=== PATIENT | female | born 1960 | race Caucasian/White ===

== ENCOUNTER 2020-04-20 10:35 | Observation (INO) | payer BC ==
[2020-04-20] MEDS ORDERED: BABY ASPIRIN 81 MG CHEW ONE (10:57)
[2020-04-20] MEDS ORDERED: BABY ASPIRIN 81 MG CHEW PO ONE (11:11)
[2020-04-20 11:19] LABS: Absolute Neutrophil Ct (ANC) 5.29 (1.4-6.9); BASOPHIL % 0.3 % (0.0-0.4); Basophil (Absolute #) 0.03 (0-0.4); Eosinophil % 2.2 % (0.00-5.0); Eosinophil (Absolute #) 0.19 (0-0.5); Hematocrit 45.8 % (35-47); Hemoglobin 15.2 gm/dl (12.0-16.0); Lymphocyte (Absolute #) 2.38 (1.0-4.6); Lymphocytes % 27.1 % (24.0-44.0); Mean Cell Volume 88.8 fl (78-100); Mean Corpuscular Hemoglobin 29.5 pg (26-32); Mean Corpuscular Hgb Concent. 33.2 g/dl (32-36); Mean Platelet Volume 11.3 fl (7.5-11.0); Monocyte (Absolute #) 0.89 (0.0-1.3); Monocytes % 10.1 % (0.0-12.0); Neutrophil % 60.3 % (36.0-66.0); Platelet Count 289 K/mm3 (150-450); Red Blood Count 5.16 M/mm3 (4.1-5.4); Red Cell Distribution Width 13.3 % (11.5-14.0); White Blood Count 8.8 K/mm3 (4.0-10.5)
[2020-04-20 11:35] LABS: ALBUMIN 4.5 g/dL (3.5-5.0); ALKALINE PHOSPHATASE 126 U/L (38-126); ANION GAP 11.6 MEQ/L (5-15); BLOOD UREA NITROGEN 18 mg/dL (7-17); CHLORIDE 100 mmol/L (98-107); Calcium 9.6 mg/dL (8.4-10.2); Carbon Dioxide 30 mmol/L (22-30); Creatinine 1 0.63 mg/dL (0.52-1.04); EST GLOMERULAR FILTRATION RATE > 60.0 ML/MIN; Glucose 144 mg/dL (74-106); NT PRO BNP 39.7 pg/mL (0-900); SGOT/AST 33 U/L (14-36); SGPT/ALT 27 U/L (0-35); SODIUM 138 mmol/L (137-145); Total Protein 9.1 g/dL (6.3-8.2)
--- NOTE | 2020-04-20 11:35 | ERPHSYRPT ---
- History of Present Illness Time Seen by Provider: 04/20/20 10:50 Historian: patient Exam Limitations: no limitations Patient Subjective Stated Complaint: CP Triage Nursing Assessment: pt to ED c/o CP 2/10 x 2-3 days. CP woke pt this AM. reports constant pressure and occasional heaviness 5/10 to L chest and some time in L back shoulder blade. denies cardiac hx other than HTN which she takes meds for. hypertensive on arrival, pt states d/t anxiety of being in ED. ambulates without assistance. heart sounds clear. Physician History: 59 years old female with history of hypertension, diabetes mellitus presented in the ER with chief complaint of left-sided chest pain off and on for the last 2 to 3 days, lasting for few minutes and improved without any intervention, occasional radiation to the back especially in the shoulder blade area on the left without any associated palpitations or increased shortness of breath but what she has at her baseline. It woke her up from sleep this morning and improved with sitting and later came back when she went to work, continuous, rating 2/10 tightness and pressure. Does not have any history of CAD/any cardiac work-up done in the past. Timing/Duration: day(s) (3), intermittent, gradual onset, improved Activities at Onset: rest Quality: dullness, pressure, tightness Location: substernal Chest Pain Radiation: back Severity of Pain-Max: moderate Severity of Pain-Current: mild Modifying Factors: Worsens With: exertion Associated Symptoms: nausea Prior Chest Pain/Cardiac Workup: no prior chest pain, no prior cardiac workup Nitro Today/Relief: no nitro taken today Aspirin Treatment Today: no aspirin today Allergies/Adverse Reactions: cephalexin [From Keflex] Adverse Reaction (Verified 04/20/20 11:00) NV, HARRELL morphine Adverse Reaction (Verified 04/20/20 11:00) NV Home Medications: Glipizide [Glipizide ER] 1 tab PO DAILY 04/20/20 [History] Valsartan/Hydrochlorothiazide [Valsartan-Hctz 320-12.5 mg Tab] 1 tab PO DAILY 04/20/20 [History] Hx Tetanus, Diphtheria Vaccination/Date Given: Yes Hx Influenza Vaccination/Date Given: Yes Hx Pneumococcal Vaccination/Date Given: Yes Immunizations Up to Date: Yes Travel Risk - International Travel Have you traveled outside of the country in past 3 weeks: No - Coronavirus Screening Are you exhibiting any of the following symptoms?: No Close contact with a COVID-19 positive Pt in past 14-21 Days: No - Review of Systems Constitutional: No Symptoms Eyes: No Symptoms Ears, Nose, & Throat: No Symptoms Respiratory: Dyspnea Cardiac: Chest Pain Abdominal/Gastrointestinal: Nausea Genitourinary Symptoms: No Symptoms Musculoskeletal: No Symptoms Skin: No Symptoms Neurological: No Symptoms Psychological: No Symptoms Endocrine: No Symptoms Hematologic/Lymphatic: No Symptoms Immunological/Allergic: No Symptoms - Past Medical History Pertinent Past Medical History: Yes Neurological History: No Pertinent History Cardiac History: Hypertension Endocrine Medical History: Diabetes Type II - Past Surgical History Past Surgical History: Yes Musculoskeletal: Orthopedic Surgery Other Surgical History: R wrist, R foot x 3. biopsy on R breast 2009, negative - Social History Smoking Status: Never smoker Exposure to second hand smoke: No Drug Use: none Patient Lives Alone: No - Female History Hx Now: No - Nursing Vital Signs Nursing Vital Signs: Initial Vital Signs Temperature 98.7 F 04/20/20 10:43 Pulse Rate 85 04/20/20 10:43 Respiratory Rate 21 04/20/20 10:43 Blood Pressure 208/111 04/20/20 10:43 O2 Sat by Pulse Oximetry 98 04/20/20 10:43 Pain Scale Pain Intensity 0 - Physical Exam General Appearance: no apparent distress Eye Exam: PERRL/EOMI, eyes nml inspection Ears, Nose, Throat Exam: normal ENT inspection, TMs normal, pharynx normal Neck Exam: normal inspection, non-tender, supple, full range of motion Respiratory Exam: normal breath sounds, lungs clear Cardiovascular Exam: regular rate/rhythm, normal heart sounds Gastrointestinal/Abdomen Exam: soft, normal bowel sounds Back Exam: normal inspection, normal range of motion Extremity Exam: normal inspection, normal range of motion Neurologic Exam: alert, oriented x 3, cooperative Skin Exam: normal color SpO2 Interpretation: normal SpO2: 99 O2 Delivery: Room Air - Course EKG Interpreted by Me: RATE (79), Sinus Rhythm, NORMAL AXIS, NORMAL INTERVALS, NORMAL QRS Ordered Tests: Active Orders 24 hr Category Date Time Status Bedrest with BRP/BSC ROUTINE Activity 04/20/20 13:16 Active Up With Assistance ROUTINE Activity 04/20/20 13:16 Active Block Captain STAT Care 04/20/20 11:11 Completed Code Status Order ROUTINE Care 04/20/20 13:16 Active EKG-ER Only STAT Care 04/20/20 11:11 Completed Fall Protocol ROUTINE Care 04/20/20 13:16 Active IV Care Q6H Care 04/20/20 13:16 Active IV Insertion STAT Care 04/20/20 11:11 Completed Pulse Oximetry (ED) STAT Care 04/20/20 11:11 Completed Wilbert Lawton, Apply ROUTINE Care 04/20/20 13:16 Active Telemetry q6h Care 04/20/20 13:16 Active Weight,Daily 0600 Care 04/20/20 13:16 Active Consistent Carbohydrate Diet 1800 Calorie Diet 04/20/20 Dinner Active CHEST 2 VIEWS (PA AND LAT) Stat Exams 04/20/20 11:11 Completed CBC W DIFF AM.LAB Lab 04/21/20 04:00 Ordered CBC W DIFF Stat Lab 04/20/20 10:45 Completed CMP AM.LAB Lab 04/21/20 04:00 Ordered CMP Stat Lab 04/20/20 10:45 Completed D-DIMER QUANTITATIVE Stat Lab 04/20/20 10:45 Completed NT PRO BNP Stat Lab 04/20/20 10:45 Completed TROPONIN Q3H Lab 04/20/20 11:15 Completed TROPONIN Q3H Lab 04/20/20 14:15 Ordered TROPONIN Q3H Lab 04/20/20 17:15 Ordered TROPONIN Q3H Lab 04/20/20 20:15 Ordered TROPONIN Q3H Lab 04/20/20 23:15 Ordered Transfer Order Routine Transfer 04/20/20 Completed Medication Summary Generic Name Dose Route Start Last Admin Trade Name Freq PRN Reason Stop Dose Admin Acetaminophen 650 mg 04/20/20 13:16 Tylenol 325 Mg PO 05/20/20 13:15 Q4H PRN PRN PAIN AND/OR FEVER Albuterol/Ipratropium 3 ml 04/20/20 13:16 Duoneb 0.5-3 Mg/3 Ml Neb IH 05/20/20 13:15 Q4HPRN PRN SHORTNESS OF BREATH/WHEEZING Famotidine 20 mg 04/20/20 22:00 Pepcid 20 Mg Vial IV 05/20/20 21:59 Q12HT RENE Insulin Human Lispro 0 unit 04/20/20 13:16 Humalog SQ 05/20/20 13:15 UD PRN HYPERGLYCEMIA Morphine Sulfate 2 mg 04/20/20 13:16 Morphine Sulfate 2 Mg Inj IV 04/25/20 13:15 Q4H PRN PRN PAIN Ondansetron HCl 4 mg 04/20/20 13:16 Zofran 4 Mg/2 Ml Vial IV 05/20/20 13:15 Q6H PRN PRN NAUSEA/VOMITING Discontinued Medications Generic Name Dose Route Start Last Admin Trade Name Freq PRN Reason Stop Dose Admin Aspirin Confirm 04/20/20 10:57 Baby Aspirin 81 Mg Chew Administered 04/20/20 10:58 Dose 324 mg .ROUTE .STK-MED ONE Aspirin 324 mg 04/20/20 11:11 04/20/20 11:18 Baby Aspirin 81 Mg Chew PO 04/20/20 11:12 324 mg STAT ONE Administration Nitroglycerin 1 gm 04/20/20 11:51 04/20/20 11:57 Nitro-Bid 2% Ud Packets TOP 04/20/20 11:52 1 gm STAT ONE Administration Nitroglycerin Confirm 04/20/20 11:56 Nitro-Bid 2% Ud Packets Administered 04/20/20 11:57 Dose 1 gm .ROUTE .STK-MED ONE Lab/Rad Data: Laboratory Result Diagrams 04/20/20 10:45 04/20/20 10:45 Laboratory Results 04/20/20 04/20/20 04/20/20 Range/Units 11:15 10:45 10:45 WBC (4.0-10.5) K/mm3 RBC (4.1-5.4) M/mm3 Hgb (12.0-16.0) gm/dl Hct (35-47) % MCV (78-100) fl MCH (26-32) pg MCHC (32-36) g/dl RDW (11.5-14.0) % Plt Count (150-450) K/mm3 MPV (7.5-11.0) fl Gran % (36.0-66.0) % Eos # (Auto) (0-0.5) Absolute Lymphs (auto) (1.0-4.6) Absolute Monos (auto) (0.0-1.3) Lymphocytes % (24.0-44.0) % Monocytes % (0.0-12.0) % Eosinophils % (0.00-5.0) % Basophils % (0.0-0.4) % Absolute Granulocytes (1.4-6.9) Basophils # (0-0.4) D-Dimer 464 (215-500) ng/mL Sodium 138 (137-145) mmol/L Potassium 4.0 (3.5-5.1) mmol/L Chloride 100 (98-107) mmol/L Carbon Dioxide 30 (22-30) mmol/L Anion Gap 11.6 (5-15) MEQ/L BUN 18 H (7-17) mg/dL Creatinine 0.63 (0.52-1.04) mg/dL Estimated GFR > 60.0 ML/MIN Glucose 144 H (74-106) mg/dL Calcium 9.6 (8.4-10.2) mg/dL Total Bilirubin 0.60 (0.2-1.3) mg/dL AST 33 (14-36) U/L ALT 27 (0-35) U/L Alkaline Phosphatase 126 (38-126) U/L Troponin I < 0.012 (0.000-0.034) ng/mL NT-Pro-B Natriuret Pep 39.7 (0-900) pg/mL Serum Total Protein 9.1 H (6.3-8.2) g/dL Albumin 4.5 (3.5-5.0) g/dL 04/20/20 Range/Units 10:45 WBC 8.8 (4.0-10.5) K/mm3 RBC 5.16 (4.1-5.4) M/mm3 Hgb 15.2 (12.0-16.0) gm/dl Hct 45.8 (35-47) % MCV 88.8 (78-100) fl MCH 29.5 (26-32) pg MCHC 33.2 (32-36) g/dl RDW 13.3 (11.5-14.0) % Plt Count 289 (150-450) K/mm3 MPV 11.3 H (7.5-11.0) fl Gran % 60.3 (36.0-66.0) % Eos # (Auto) 0.19 (0-0.5) Absolute Lymphs (auto) 2.38 (1.0-4.6) Absolute Monos (auto) 0.89 (0.0-1.3) Lymphocytes % 27.1 (24.0-44.0) % Monocytes % 10.1 (0.0-12.0) % Eosinophils % 2.2 (0.00-5.0) % Basophils % 0.3 (0.0-0.4) % Absolute Granulocytes 5.29 (1.4-6.9) Basophils # 0.03 (0-0.4) D-Dimer (215-500) ng/mL Sodium (137-145) mmol/L Potassium (3.5-5.1) mmol/L Chloride (98-107) mmol/L Carbon Dioxide (22-30) mmol/L Anion Gap (5-15) MEQ/L BUN (7-17) mg/dL Creatinine (0.52-1.04) mg/dL Estimated GFR ML/MIN Glucose (74-106) mg/dL Calcium (8.4-10.2) mg/dL Total Bilirubin (0.2-1.3) mg/dL AST (14-36) U/L ALT (0-35) U/L Alkaline Phosphatase (38-126) U/L Troponin I (0.000-0.034) ng/mL NT-Pro-B Natriuret Pep (0-900) pg/mL Serum Total Protein (6.3-8.2) g/dL Albumin (3.5-5.0) g/dL - Progress Progress: improved Air Movement: good Progress Note: 04/20/20 12:00 59 years old is evaluated for intermittent chest pain for the last 2 to 3 days. Patient was hypertensive on presentation, given aspirin, offered pain medication which she refused. She is also given Nitropaste, on reevaluation her pain is better along with improvement in her blood pressure. Patient denies any headache or visual symptoms. Initial EKG did not show any acute ST elevations or depressions. Negative initial troponin and D-dimers. Chest x-ray no acute findings. Unremarkable work-up otherwise. Patient has multiple risk factors for CAD and does not have any work-up done in the near past. Discussed with Dr. Garnett with that patient is being admitted for observation for chest pain rule out GA. Plan discussed with patient in detail who understand and agrees with it. Blood Culture(s) Obtained: No Antibiotics given: No Discussed with : Kelechi Will see patient in: hospital (observation) Counseled pt/family regarding: lab results, diagnosis, rad results - Departure Departure Disposition: Observation Clinical Impression: Chest pain, rule out acute myocardial infarction, Uncontrolled hypertension Condition: Stable Critical Care Time: No
[2020-04-20] MEDS ORDERED: NITRO-BID 2% UD PACKETS TOP ONE (11:51)
[2020-04-20] MEDS ORDERED: NITRO-BID 2% UD PACKETS ONE (11:56)
--- NOTE | 2020-04-20 11:57 | XRAY ---
Indication: Chest pain. Comparison: May 11, 2019. PA/lateral chest remains clear. Heart and mediastinal structures within normal limits. Bony thorax intact again with mild degenerative changes and mild dextroscoliosis. Impression: Continued nonacute chest with chronic bony findings.
[2020-04-20] MEDS ORDERED: HUMALOG SQ PRN (13:16)
[2020-04-20] MEDS ORDERED: MORPHINE SULFATE 2 MG INJ IV PRN (13:16)
[2020-04-20] MEDS ORDERED: Zofran 4 MG/2 ML VIAL IV PRN (13:16)
[2020-04-20] MEDS ORDERED: TYLENOL 325 MG PO PRN (13:16)
[2020-04-20] MEDS ORDERED: DUONEB 0.5-3 MG/3 ml Neb IH PRN (13:16)
[2020-04-20] MEDS ORDERED: TYLENOL EXTRA STRENGTH 500 MG PO PRN (14:02)
[2020-04-20] MEDS: DIOVAN PO SCH ×2 (14:37)
[2020-04-20] MEDS: HYDRODIURIL PO SCH ×2 (14:37)
[2020-04-20] MEDS ORDERED: Glucotrol Xl 10 MG PO SCH (17:00)
[2020-04-20] MEDS ORDERED: TORAdol 30 mg Injection IM PRN (17:44)
[2020-04-20] MEDS ORDERED: TORAdol 30 mg Injection ONE (17:47)
[2020-04-20] MEDS ORDERED: NON-FORMULARY ITEM PO PRN (18:30)
[2020-04-20] MEDS ORDERED: Pepcid 20 MG VIAL IV SCH (22:00)
[2020-04-21 05:25] LABS: Absolute Neutrophil Ct (ANC) 4.28 (1.4-6.9); BASOPHIL % 0.4 % (0.0-0.4); Basophil (Absolute #) 0.03 (0-0.4); Eosinophil % 3.2 % (0.00-5.0); Eosinophil (Absolute #) 0.25 (0-0.5); Hematocrit 44.6 % (35-47); Hemoglobin 14.8 gm/dl (12.0-16.0); Lymphocyte (Absolute #) 2.32 (1.0-4.6); Mean Cell Volume 89.2 fl (78-100); Mean Corpuscular Hemoglobin 29.6 pg (26-32); Mean Corpuscular Hgb Concent. 33.2 g/dl (32-36); Mean Platelet Volume 11.4 fl (7.5-11.0); Monocyte (Absolute #) 0.85 (0.0-1.3); Neutrophil % 55.4 % (36.0-66.0); Platelet Count 281 K/mm3 (150-450); Red Cell Distribution Width 13.3 % (11.5-14.0); White Blood Count 7.7 K/mm3 (4.0-10.5)
[2020-04-21 05:56] LABS: ALKALINE PHOSPHATASE 108 U/L (38-126); ANION GAP 11.6 MEQ/L (5-15); BLOOD UREA NITROGEN 16 mg/dL (7-17); CHLORIDE 102 mmol/L (98-107); Calcium 9.3 mg/dL (8.4-10.2); Carbon Dioxide 27 mmol/L (22-30); Creatinine 1 0.52 mg/dL (0.52-1.04); EST GLOMERULAR FILTRATION RATE > 60.0 ML/MIN; Glucose 131 mg/dL (74-106); SGOT/AST 35 U/L (14-36); SGPT/ALT 21 U/L (0-35); SODIUM 136 mmol/L (137-145); Total Protein 8.1 g/dL (6.3-8.2)
[2020-04-21 06:03] LABS: Potassium 4.8 mmol/L (3.5-5.1)
[2020-04-21 07:09] VITALS: BP 139/81; PULSE 60; O2SAT 96
[2020-04-21] MEDS ORDERED: PATIENT OWN MEDICATION PO PRN (07:15)
--- NOTE | 2020-04-21 09:02 | PCM.HP ---
History of Present Illness - Chief Complaint Chief Complaint: c/o chest pain for 2 days History of Present Illness: is a 59 year old female.59 years old female with history of hypertension, diabetes mellitus presented in the ER with chief complaint of left-sided chest pain off and on for the last 2 to 3 days, lasting for few minutes and improved without any intervention, occasional radiation to the back especially in the shoulder blade area on the left without any associated palpit ations or increased shortness of breath but what she has at her baseline. It woke her up from sleep this morning and improved with sitting and later came back when she went to work, continuous, rating 2/10 tightness and pressure. Does not have any history of CAD/any cardiac work-up done in the past. - Review of Systems Constitutional: No Fever, No Chills Eyes: No Symptoms Ears, Nose, & Throat: No Symptoms Respiratory: No Cough, No Short Of Breath Cardiac: Chest Pain, No Edema, No Syncope Abdominal/Gastrointestinal: No Abdominal Pain, No Nausea, No Vomiting, No Diarrhea Genitourinary Symptoms: No Dysuria Musculoskeletal: No Back Pain, No Neck Pain Skin: No Rash Neurological: No Dizziness, No Focal Weakness, No Sensory Changes Psychological: No Symptoms Endocrine: No Symptoms Hematologic/Lymphatic: No Symptoms Immunological/Allergic: No Symptoms Medications & Allergies Home Medications: Home Medication List Glipizide [Glipizide ER] 10 mg PO 1700 04/20/20 [History Confirmed 04/20/20] Valsartan/Hydrochlorothiazide [Valsartan-Hctz 320-12.5 mg Tab] 1 tab PO DAILY 04/20/20 [History Confirmed 04/20/20] Allergies/Adverse Reactions: Allergies Allergy/AdvReac Type Severity Reaction Status Date / Time glimepiride AdvReac Severe Anaphylactic Verified 04/20/20 13:29 Reaction nizatidine [From Axid] AdvReac Severe Verified 04/20/20 13:29 cephalexin [From Keflex] AdvReac Verified 04/20/20 11:00 morphine AdvReac Verified 04/20/20 13:29 - Past Medical History Past Medical History: Yes Neurological History: No Pertinent History ENT History: No Pertinent History Cardiac History: Hypertension Respiratory History: No Pertinent History Endocrine Medical History: Diabetes Type II Musculoskelatal History: No Pertinent History GI Medical History: No Pertinent History History: No Pertinent History Pyscho-Social History: No Pertinent History Reproductive Disorders: No Pertinent History - Female History Are you now?: No - Past Surgical History Past Surgical History: Yes Neuro Surgical History: No Pertinent History Cardiac History: No Pertinent History Respiratory Surgery: No Pertinent History GI Surgical History: No Pertinent History Genitourinary Surgical Hx: No Pertinent History Musculskeletal Surgical Hx: Orthopedic Surgery Female Surgical History: Other Other Surgical History: R wrist, R foot x 3. biopsy on R breast 2010, negative - Social History Smoking Status: Never smoker Exposure to second hand smoke: No Alcohol: None Drug Use: none - Physical Exam Vital Signs: Vital Signs - 24 hr Temp Pulse Pulse Resp BP Pulse Ox 04/21/20 07:09 98.1 F 60 20 139/81 96 04/21/20 05:00 97.6 F 56 L 16 149/81 97 04/21/20 00:30 98.0 F 62 18 160/76 94 L 04/20/20 19:42 98.1 F 70 13 141/68 94 L 04/20/20 16:00 97.9 F 97 H 18 181/54 96 04/20/20 13:19 99 04/20/20 13:16 98.1 F 80 16 177/80 96 04/20/20 12:06 82 18 146/93 99 04/20/20 11:37 67 14 189/88 98 04/20/20 11:18 99 04/20/20 10:43 98.7 F 98 H 85 21 208/111 98 General Appearance: no apparent distress, alert Neurologic Exam: alert, oriented x 3, cooperative, normal mood/affect, nml cere bellar function, nml station & gait, sensation nml, No motor deficits Eye Exam: PERRL/EOMI, eyes nml inspection Ears, Nose, Throat Exam: normal ENT inspection, TMs normal, pharynx normal, moist mucous membranes Neck Exam: normal inspection, non-tender, supple, full range of motion Respiratory Exam: normal breath sounds, lungs clear, No respiratory distress Cardiovascular Exam: regular rate/rhythm, normal heart sounds, normal peripheral pulses Gastrointestinal/Abdomen Exam: soft, normal bowel sounds, No tenderness, No mass Back Exam: normal inspection, normal range of motion, No CVA tenderness, No vertebral tenderness Extremity Exam: normal inspection, normal range of motion, pelvis stable Skin Exam: normal color, warm, dry, No rash Lymphatic Exam: No adenopathy Results - Labs Lab/Micro Results: Lab Results-Last 24 Hours 04/20/20 04/20/20 04/20/20 Range/Units 10:45 10:45 10:45 WBC 8.8 (4.0-10.5) K/mm3 RBC 5.16 (4.1-5.4) M/mm3 Hgb 15.2 (12.0-16.0) gm/dl Hct 45.8 (35-47) % MCV 88.8 (78-100) fl MCH 29.5 (26-32) pg MCHC 33.2 (32-36) g/dl RDW 13.3 (11.5-14.0) % Plt Count 289 (150-450) K/mm3 MPV 11.3 H (7.5-11.0) fl Gran % 60.3 (36.0-66.0) % Eos # (Auto) 0.19 (0-0.5) Absolute Lymphs (auto) 2.38 (1.0-4.6) Absolute Monos (auto) 0.89 (0.0-1.3) Lymphocytes % 27.1 (24.0-44.0) % Monocytes % 10.1 (0.0-12.0) % Eosinophils % 2.2 (0.00-5.0) % Basophils % 0.3 (0.0-0.4) % Absolute Granulocytes 5.29 (1.4-6.9) Basophils # 0.03 (0-0.4) D-Dimer 464 (215-500) ng/mL Sodium 138 (137-145) mmol/L Potassium 4.0 (3.5-5.1) mmol/L Chloride 100 (98-107) mmol/L Carbon Dioxide 30 (22-30) mmol/L Anion Gap 11.6 (5-15) MEQ/L BUN 18 H (7-17) mg/dL Creatinine 0.63 (0.52-1.04) mg/dL Estimated GFR > 60.0 ML/MIN Glucose 144 H (74-106) mg/dL POC Glucometer (74 to 106) mg/dL Calcium 9.6 (8.4-10.2) mg/dL Total Bilirubin 0.60 (0.2-1.3) mg/dL AST 33 (14-36) U/L ALT 27 (0-35) U/L Alkaline Phosphatase 126 (38-126) U/L Troponin I (0.000-0.034) ng/mL NT-Pro-B Natriuret Pep 39.7 (0-900) pg/mL Serum Total Protein 9.1 H (6.3-8.2) g/dL Albumin 4.5 (3.5-5.0) g/dL 04/20/20 04/20/20 04/20/20 Range/Units 11:15 14:20 16:19 WBC (4.0-10.5) K/mm3 RBC (4.1-5.4) M/mm3 Hgb (12.0-16.0) gm/dl Hct (35-47) % MCV (78-100) fl MCH (26-32) pg MCHC (32-36) g/dl RDW (11.5-14.0) % Plt Count (150-450) K/mm3 MPV (7.5-11.0) fl Gran % (36.0-66.0) % Eos # (Auto) (0-0.5) Absolute Lymphs (auto) (1.0-4.6) Absolute Monos (auto) (0.0-1.3) Lymphocytes % (24.0-44.0) % Monocytes % (0.0-12.0) % Eosinophils % (0.00-5.0) % Basophils % (0.0-0.4) % Absolute Granulocytes (1.4-6.9) Basophils # (0-0.4) D-Dimer (215-500) ng/mL Sodium (137-145) mmol/L Potassium (3.5-5.1) mmol/L Chloride (98-107) mmol/L Carbon Dioxide (22-30) mmol/L Anion Gap (5-15) MEQ/L BUN (7-17) mg/dL Creatinine (0.52-1.04) mg/dL Estimated GFR ML/MIN Glucose (74-106) mg/dL POC Glucometer 155 H (74 to 106) mg/dL Calcium (8.4-10.2) mg/dL Total Bilirubin (0.2-1.3) mg/dL AST (14-36) U/L ALT (0-35) U/L Alkaline Phosphatase (38-126) U/L Troponin I < 0.012 < 0.012 (0.000-0.034) ng/mL NT-Pro-B Natriuret Pep (0-900) pg/mL Serum Total Protein (6.3-8.2) g/dL Albumin (3.5-5.0) g/dL 04/20/20 04/20/20 04/20/20 Range/Units 17:45 20:20 20:28 WBC (4.0-10.5) K/mm3 RBC (4.1-5.4) M/mm3 Hgb (12.0-16.0) gm/dl Hct (35-47) % MCV (78-100) fl MCH (26-32) pg MCHC (32-36) g/dl RDW (11.5-14.0) % Plt Count (150-450) K/mm3 MPV (7.5-11.0) fl Gran % (36.0-66.0) % Eos # (Auto) (0-0.5) Absolute Lymphs (auto) (1.0-4.6) Absolute Monos (auto) (0.0-1.3) Lymphocytes % (24.0-44.0) % Monocytes % (0.0-12.0) % Eosinophils % (0.00-5.0) % Basophils % (0.0-0.4) % Absolute Granulocytes (1.4-6.9) Basophils # (0-0.4) D-Dimer (215-500) ng/mL Sodium (137-145) mmol/L Potassium (3.5-5.1) mmol/L Chloride (98-107) mmol/L Carbon Dioxide (22-30) mmol/L Anion Gap (5-15) MEQ/L BUN (7-17) mg/dL Creatinine (0.52-1.04) mg/dL Estimated GFR ML/MIN Glucose (74-106) mg/dL POC Glucometer 145 H (74 to 106) mg/dL Calcium (8.4-10.2) mg/dL Total Bilirubin (0.2-1.3) mg/dL AST (14-36) U/L ALT (0-35) U/L Alkaline Phosphatase (38-126) U/L Troponin I < 0.012 < 0.012 (0.000-0.034) ng/mL NT-Pro-B Natriuret Pep (0-900) pg/mL Serum Total Protein (6.3-8.2) g/dL Albumin (3.5-5.0) g/dL 04/20/20 04/21/20 04/21/20 Range/Units 23:30 04:45 04:45 WBC 7.7 (4.0-10.5) K/mm3 RBC 5.00 (4.1-5.4) M/mm3 Hgb 14.8 (12.0-16.0) gm/dl Hct 44.6 (35-47) % MCV 89.2 (78-100) fl MCH 29.6 (26-32) pg MCHC 33.2 (32-36) g/dl RDW 13.3 (11.5-14.0) % Plt Count 281 (150-450) K/mm3 MPV 11.4 H (7.5-11.0) fl Gran % 55.4 (36.0-66.0) % Eos # (Auto) 0.25 (0-0.5) Absolute Lymphs (auto) 2.32 (1.0-4.6) Absolute Monos (auto) 0.85 (0.0-1.3) Lymphocytes % 30.0 (24.0-44.0) % Monocytes % 11.0 (0.0-12.0) % Eosinophils % 3.2 (0.00-5.0) % Basophils % 0.4 (0.0-0.4) % Absolute Granulocytes 4.28 (1.4-6.9) Basophils # 0.03 (0-0.4) D-Dimer (215-500) ng/mL Sodium 136 L (137-145) mmol/L Potassium 4.8 (3.5-5.1) mmol/L Chloride 102 (98-107) mmol/L Carbon Dioxide 27 (22-30) mmol/L Anion Gap 11.6 (5-15) MEQ/L BUN 16 (7-17) mg/dL Creatinine 0.52 (0.52-1.04) mg/dL Estimated GFR > 60.0 ML/MIN Glucose 131 H (74-106) mg/dL POC Glucometer (74 to 106) mg/dL Calcium 9.3 (8.4-10.2) mg/dL Total Bilirubin 0.70 (0.2-1.3) mg/dL AST 35 (14-36) U/L ALT 21 (0-35) U/L Alkaline Phosphatase 108 (38-126) U/L Troponin I < 0.012 (0.000-0.034) ng/mL NT-Pro-B Natriuret Pep (0-900) pg/mL Serum Total Protein 8.1 (6.3-8.2) g/dL Albumin 4.0 (3.5-5.0) g/dL 04/21/20 Range/Units 06:21 WBC (4.0-10.5) K/mm3 RBC (4.1-5.4) M/mm3 Hgb (12.0-16.0) gm/dl Hct (35-47) % MCV (78-100) fl MCH (26-32) pg MCHC (32-36) g/dl RDW (11.5-14.0) % Plt Count (150-450) K/mm3 MPV (7.5-11.0) fl Gran % (36.0-66.0) % Eos # (Auto) (0-0.5) Absolute Lymphs (auto) (1.0-4.6) Absolute Monos (auto) (0.0-1.3) Lymphocytes % (24.0-44.0) % Monocytes % (0.0-12.0) % Eosinophils % (0.00-5.0) % Basophils % (0.0-0.4) % Absolute Granulocytes (1.4-6.9) Basophils # (0-0.4) D-Dimer (215-500) ng/mL Sodium (137-145) mmol/L Potassium (3.5-5.1) mmol/L Chloride (98-107) mmol/L Carbon Dioxide (22-30) mmol/L Anion Gap (5-15) MEQ/L BUN (7-17) mg/dL Creatinine (0.52-1.04) mg/dL Estimated GFR ML/MIN Glucose (74-106) mg/dL POC Glucometer 146 H (74 to 106) mg/dL Calcium (8.4-10.2) mg/dL Total Bilirubin (0.2-1.3) mg/dL AST (14-36) U/L ALT (0-35) U/L Alkaline Phosphatase (38-126) U/L Troponin I (0.000-0.034) ng/mL NT-Pro-B Natriuret Pep (0-900) pg/mL Serum Total Protein (6.3-8.2) g/dL Albumin (3.5-5.0) g/dL Accuchecks Date 04/21/20 Date 04/20/20 Time 06:21 Time 22:00 - Radiology Impressions Radiology Exams & Impressions: Radiology Procedures Category Date Time Status CHEST 2 VIEWS (PA AND LAT) Stat Exams 04/20/20 11:11 Completed Assessment/Plan (1) Chest pain, rule out acute myocardial infarction Current Visit: Yes Status: Resolved Code(s): R07.9 - CHEST PAIN, UNSPECIFIED (2) Uncontrolled hypertension Current Visit: Yes Status: Chronic Assessment & Plan: Chief Complaint Diagnosis c/o chest pain for 2 days Allergies Allergy/AdvReac Type Severity Reaction Status Date / Time glimepiride AdvReac Severe Anaphylactic Verified 04/20/20 13:29 Reaction nizatidine [From Axid] AdvReac Severe Verified 04/20/20 13:29 cephalexin [From Keflex] AdvReac Verified 04/20/20 11:00 morphine AdvReac Verified 04/20/20 13:29 Vital Signs (Last 24 hours) Temp Pulse Pulse Resp BP Pulse Ox 04/21/20 07:09 98.1 F 60 20 139/81 96 04/21/20 05:00 97.6 F 56 L 16 149/81 97 04/21/20 00:30 98.0 F 62 18 160/76 94 L 04/20/20 19:42 98.1 F 70 13 141/68 94 L 04/20/20 16:00 97.9 F 97 H 18 181/54 96 04/20/20 13:19 99 04/20/20 13:16 98.1 F 80 16 177/80 96 04/20/20 12:06 82 18 146/93 99 04/20/20 11:37 67 14 189/88 98 04/20/20 11:18 99 04/20/20 10:43 98.7 F 98 H 85 21 208/111 98 Home Medications Medication Instructions Recorded Confirmed Last Taken Type Glipizide [Glipizide ER] 10 mg PO 1700 04/20/20 04/20/20 04/19/20 History Valsartan/Hydrochlorothiazide 1 tab PO DAILY 04/20/20 04/20/20 04/20/20 History [Valsartan-Hctz 320-12.5 mg Tab] Current Medications Generic Name Dose Route Start Last Admin Trade Name Freq PRN Reason Stop Dose Admin Acetaminophen 500 mg 04/20/20 14:02 04/20/20 16:23 Tylenol Extra Strength 500 Mg PO 05/20/20 14:01 500 mg Q4HPRN PRN Administration PAIN Valsartan 320 mg/ 0 mg 04/20/20 14:30 04/20/20 14:37 Hydrochlorothiazide 12.5 mg PO 05/20/20 14:29 320 mg DAILY RENE Administration Famotidine 20 mg 04/20/20 22:00 04/20/20 21:50 Pepcid 20 Mg Vial IV 05/20/20 21:59 20 mg Q12HT RENE Administration Glipizide 10 mg 04/20/20 17:00 04/20/20 17:07 Glucotrol Xl 10 Mg PO 05/20/20 16:59 10 mg 1700 RENE Administration Insulin Human Lispro 0 unit 04/20/20 13:16 Humalog SQ 05/20/20 13:15 UD PRN HYPERGLYCEMIA Ketorolac Tromethamine 30 mg 04/20/20 17:44 Toradol 30 Mg Injection IM 04/25/20 17:43 Q8H PRN PRN PAIN Ondansetron HCl 4 mg 04/20/20 13:16 Zofran 4 Mg/2 Ml Vial IV 05/20/20 13:15 Q6H PRN PRN NAUSEA/VOMITING Excedrin Migraine 1 each 04/21/20 07:15 PO 05/21/20 06:58 DAILY PRN PRN MIGRAINE Discontinued Medications Generic Name Dose Route Start Last Admin Trade Name Freq PRN Reason Stop Dose Admin Acetaminophen 650 mg 04/20/20 13:16 Tylenol 325 Mg PO 05/20/20 13:15 Q4H PRN PRN PAIN AND/OR FEVER Albuterol/Ipratropium 3 ml 04/20/20 13:16 Duoneb 0.5-3 Mg/3 Ml Neb IH 05/20/20 13:15 Q4HPRN PRN SHORTNESS OF BREATH/WHEEZING Aspirin Confirm 04/20/20 10:57 Baby Aspirin 81 Mg Chew Administered 04/20/20 10:58 Dose 324 mg .ROUTE .STK-MED ONE Aspirin 324 mg 04/20/20 11:11 04/20/20 11:18 Baby Aspirin 81 Mg Chew PO 04/20/20 11:12 324 mg STAT ONE Administration Ketorolac Tromethamine Confirm 04/20/20 17:47 Toradol 30 Mg Injection Administered 04/20/20 17:48 Dose 30 mg .ROUTE .STK-MED ONE Morphine Sulfate 2 mg 04/20/20 13:16 Morphine Sulfate 2 Mg Inj IV 04/25/20 13:15 Q4H PRN PRN PAIN Nitroglycerin 1 gm 04/20/20 11:51 04/20/20 11:57 Nitro-Bid 2% Ud Packets TOP 04/20/20 11:52 1 gm STAT ONE Administration Nitroglycerin Confirm 04/20/20 11:56 Nitro-Bid 2% Ud Packets Administered 04/20/20 11:57 Dose 1 gm .ROUTE .STK-MED ONE Non-Formulary Medication 1 each 04/20/20 18:30 04/20/20 18:41 Non-Formulary Item PO 05/20/20 18:29 1 each DAILY PRN PRN Administration MIGRAINE Intake & Output (Last 24 hours) 04/18/20 04/19/20 04/20/20 04/21/20 11:59 11:59 11:59 11:59 Intake Total 1250 Balance 1250 Weight 107.048 kg 108.4 kg Laboratory Results (Last 24 hours) 04/21/20 04/21/20 04/21/20 06:21 04:45 04:45 WBC 7.7 RBC 5.00 Hgb 14.8 Hct 44.6 MCV 89.2 MCH 29.6 MCHC 33.2 RDW 13.3 Plt Count 281 MPV 11.4 H Gran % 55.4 Eos # (Auto) 0.25 Absolute Lymphs (auto) 2.32 Absolute Monos (auto) 0.85 Lymphocytes % 30.0 Monocytes % 11.0 Eosinophils % 3.2 Basophils % 0.4 Absolute Granulocytes 4.28 Basophils # 0.03 D-Dimer Sodium 136 L Potassium 4.8 Chloride 102 Carbon Dioxide 27 Anion Gap 11.6 BUN 16 Creatinine 0.52 Estimated GFR > 60.0 Glucose 131 H POC Glucometer 146 H Calcium 9.3 Total Bilirubin 0.70 AST 35 ALT 21 Alkaline Phosphatase 108 Troponin I NT-Pro-B Natriuret Pep Serum Total Protein 8.1 Albumin 4.0 04/20/20 04/20/20 04/20/20 23:30 20:28 20:20 WBC RBC Hgb Hct MCV MCH MCHC RDW Plt Count MPV Gran % Eos # (Auto) Absolute Lymphs (auto) Absolute Monos (auto) Lymphocytes % Monocytes % Eosinophils % Basophils % Absolute Granulocytes Basophils # D-Dimer Sodium Potassium Chloride Carbon Dioxide Anion Gap BUN Creatinine Estimated GFR Glucose POC Glucometer 145 H Calcium Total Bilirubin AST ALT Alkaline Phosphatase Troponin I < 0.012 < 0.012 NT-Pro-B Natriuret Pep Serum Total Protein Albumin 04/20/20 04/20/20 04/20/20 17:45 16:19 14:20 WBC RBC Hgb Hct MCV MCH MCHC RDW Plt Count MPV Gran % Eos # (Auto) Absolute Lymphs (auto) Absolute Monos (auto) Lymphocytes % Monocytes % Eosinophils % Basophils % Absolute Granulocytes Basophils # D-Dimer Sodium Potassium Chloride Carbon Dioxide Anion Gap BUN Creatinine Estimated GFR Glucose POC Glucometer 155 H Calcium Total Bilirubin AST ALT Alkaline Phosphatase Troponin I < 0.012 < 0.012 NT-Pro-B Natriuret Pep Serum Total Protein Albumin 04/20/20 04/20/20 04/20/20 11:15 10:45 10:45 WBC RBC Hgb Hct MCV MCH MCHC RDW Plt Count MPV Gran % Eos # (Auto) Absolute Lymphs (auto) Absolute Monos (auto) Lymphocytes % Monocytes % Eosinophils % Basophils % Absolute Granulocytes Basophils # D-Dimer 464 Sodium 138 Potassium 4.0 Chloride 100 Carbon Dioxide 30 Anion Gap 11.6 BUN 18 H Creatinine 0.63 Estimated GFR > 60.0 Glucose 144 H POC Glucometer Calcium 9.6 Total Bilirubin 0.60 AST 33 ALT 27 Alkaline Phosphatase 126 Troponin I < 0.012 NT-Pro-B Natriuret Pep 39.7 Serum Total Protein 9.1 H Albumin 4.5 04/20/20 10:45 WBC 8.8 RBC 5.16 Hgb 15.2 Hct 45.8 MCV 88.8 MCH 29.5 MCHC 33.2 RDW 13.3 Plt Count 289 MPV 11.3 H Gran % 60.3 Eos # (Auto) 0.19 Absolute Lymphs (auto) 2.38 Absolute Monos (auto) 0.89 Lymphocytes % 27.1 Monocytes % 10.1 Eosinophils % 2.2 Basophils % 0.3 Absolute Granulocytes 5.29 Basophils # 0.03 D-Dimer Sodium Potassium Chloride Carbon Dioxide Anion Gap BUN Creatinine Estimated GFR Glucose POC Glucometer Calcium Total Bilirubin AST ALT Alkaline Phosphatase Troponin I NT-Pro-B Natriuret Pep Serum Total Protein Albumin Orders (Last 24 hours) Category Date Time Status Bedrest with BRP/BSC ROUTINE Activity 04/20/20 13:16 Active Up With Assistance ROUTINE Activity 04/20/20 13:16 Active Grinder Set Up Operator Gear Tool STAT Care 04/20/20 11:11 Completed Code Status Order ROUTINE Care 04/20/20 13:16 Active EKG-ER Only STAT Care 04/20/20 11:11 Completed Fall Protocol Q1H Care 04/20/20 13:16 Active IV Care Q6H Care 04/20/20 13:16 Active IV Insertion STAT Care 04/20/20 11:11 Completed POCT Glucose Check ACHS Care 04/20/20 16:[address] in Observation ROUTINE Care 04/20/20 13:10 Active Pulse Oximetry (ED) STAT Care 04/20/20 11:11 Completed Yunior Mahan ROUTINE Care 04/20/20 13:16 Active Telemetry Q12H Care 04/20/20 13:16 Active Weight,Daily 0600 Care 04/20/20 13:16 Active Consistent Carbohydrate Diet 1800 Calorie Diet 04/20/20 Dinner Active Nutritional Admission Screen ONCE Diet 04/20/20 13:42 Active CHEST 2 VIEWS (PA AND LAT) Stat Exams 04/20/20 11:11 Completed CBC W DIFF AM.LAB Lab 04/21/20 04:45 Completed CBC W DIFF Stat Lab 04/20/20 10:45 Completed CMP AM.LAB Lab 04/21/20 04:45 Completed CMP Stat Lab 04/20/20 10:45 Completed D-DIMER QUANTITATIVE Stat Lab 04/20/20 10:45 Completed NT PRO BNP Stat Lab 04/20/20 10:45 Completed POCT GLUCOSE Stat Lab 04/20/20 16:19 Completed POCT GLUCOSE Stat Lab 04/20/20 20:28 Completed POCT GLUCOSE Stat Lab 04/21/20 06:21 Completed TROPONIN Q3H Lab 04/20/20 11:15 Completed TROPONIN Q3H Lab 04/20/20 14:20 Completed TROPONIN Q3H Lab 04/20/20 17:45 Completed TROPONIN Q3H Lab 04/20/20 20:20 Completed TROPONIN Q3H Lab 04/20/20 23:30 Completed Acetaminophen 325 mg [Tylenol 325 mg] Med 04/20/20 13:16 Discontinued 650 mg PO Q4H PRN PRN Acetaminophen 500 mg [Tylenol Extra Strength 500 mg* Med 04/20/20 14:02 Active ] 500 mg PO Q4HPRN PRN Albuterol/Ipratropium 3ml Neb* [DUONEB 0.5-3 MG/3 ml Med 04/20/20 13:16 Discontinued Neb] 3 ml IH Q4HPRN PRN Aspirin 81 gm Chew [Baby Aspirin 81 mg Chew] Med 04/20/20 10:57 Discontinued 324 mg .ROUTE .STK-MED ONE Aspirin 81 gm Chew [Baby Aspirin 81 mg Chew] Med 04/20/20 11:11 Disconti nued 324 mg PO STAT ONE Famotidine 20 mg Vial [Pepcid 20 MG VIAL] Med 04/20/20 22:00 Active 20 mg IV Q12HT Glipizide Xl 10 mg [Glucotrol Xl 10 MG] Med 04/20/20 17:00 Active 10 mg PO 1700 Insulin Lispro [Humalog] Med 04/20/20 13:16 Active See Dose Instructions SQ UD PRN KETOROLAC trometh 30 mg Inj [TORAdol 30 mg Injection Med 04/20/20 17:47 Discontinued ] 30 mg .ROUTE .STK-MED ONE KETOROLAC trometh 30 mg Inj [TORAdol 30 mg Injection Med 04/20/20 17:44 Active ] 30 mg IM Q8H PRN PRN Morphine Sulfate 2 mg Inj Med 04/20/20 13:16 Discontinued 2 mg IV Q4H PRN PRN Nitroglycerin 2 %Ointment [Nitro-Bid 2% Ud Packets Med 04/20/20 11:56 Discontinued *] 1 gm .ROUTE .STK-MED ONE Nitroglycerin 2 %Ointment [Nitro-Bid 2% Ud Packets Med 04/20/20 11:51 Discontinued *] 1 gm TOP STAT ONE Non-Formulary Drug [Non-Formulary Item] Med 04/20/20 18:30 Discontinued 1 each PO DAILY PRN PRN Ondansetron HCl 4 mg/2 ml [Zofran 4 MG/2 ML VIAL] Med 04/20/20 13:16 Active 4 mg IV Q6H PRN PRN Patient Own Med [Patient Own Medication] Med 04/21/20 07:15 Active 1 each PO DAILY PRN PRN Valsartan 80 mg [Diovan 80 mg] 320 mg Med 04/20/20 14:30 Active Hydrochlorothiazide 25 mg [hydroDIURIL 25 MG] 12. 5 mg PO DAILY Code(s): I10 - ESSENTIAL (PRIMARY) HYPERTENSION (3) Type 2 diabetes mellitus Current Visit: Yes Status: Acute Qualifiers: Diabetes mellitus care home insulin use: without care home use Diabetes mellitus complication status: with hyperglycemia Qualified Code(s): E11.65 - Type 2 diabetes mellitus with hyperglycemia
[2020-04-21] MEDS: DIOVAN PO SCH ×2 (09:37)
[2020-04-21] MEDS: HYDRODIURIL PO SCH ×2 (09:37)
--- NOTE | 2020-04-22 10:01 | PCM.DS ---
Discharge Summary Date of Admission: 04/20/20 13:10 Admitting Physician: JON GOODMAN Primary Care Provider: JON GOODMAN Allergies Allergies glimepiride Adverse Reaction (Severe, Verified 04/20/20 13:29) Anaphylactic Reaction pt reports she can tolerate glipizide. nizatidine [From Axid] Adverse Reaction (Severe, Verified 04/20/20 13:29) hypertension cephalexin [From Keflex] Adverse Reaction (Verified 04/20/20 11:00) NV, HARRELL morphine Adverse Reaction (Verified 04/20/20 13:29) NV, headache Hospital Summary - Hospital Course Hospital Course: Chief Complaint Diagnosis c/o chest pain for 2 days Allergies Allergy/AdvReac Type Severity Reaction Status Date / Time glimepiride AdvReac Severe Anaphylactic Verified 04/20/20 13:29 Reaction nizatidine [From Axid] AdvReac Severe Verified 04/20/20 13:29 cephalexin [From Keflex] AdvReac Verified 04/20/20 11:00 morphine AdvReac Verified 04/20/20 13:29 Home Medications Medication Instructions Recorded Confirmed Last Taken Type Glipizide [Glipizide ER] 10 mg PO 1700 04/20/20 04/20/20 04/19/20 History Valsartan/Hydrochlorothiazide 1 tab PO DAILY 04/20/20 04/20/20 04/20/20 History [Valsartan-Hctz 320-12.5 mg Tab] Amlodipine Besylate 5 mg 5 mg PO DAILY #1 tablet 04/21/20 Unknown Rx [Norvasc 5 mg] Current Medications Discontinued Medications Generic Name Dose Route Start Last Admin Trade Name Freq PRN Reason Stop Dose Admin Acetaminophen 650 mg 04/20/20 13:16 Tylenol 325 Mg PO 05/20/20 13:15 Q4H PRN PRN PAIN AND/OR FEVER Acetaminophen 500 mg 04/20/20 14:02 04/20/20 16:23 Tylenol Extra Strength 500 Mg PO 05/20/20 14:01 500 mg Q4HPRN PRN Administration PAIN Albuterol/Ipratropium 3 ml 04/20/20 13:16 Duoneb 0.5-3 Mg/3 Ml Neb IH 05/20/20 13:15 Q4HPRN PRN SHORTNESS OF BREATH/WHEEZING Aspirin Confirm 04/20/20 10:57 Baby Aspirin 81 Mg Chew Administered 04/20/20 10:58 Dose 324 mg .ROUTE .STK-MED ONE Aspirin 324 mg 04/20/20 11:11 04/20/20 11:18 Baby Aspirin 81 Mg Chew PO 04/20/20 11:12 324 mg STAT ONE Administration Valsartan 320 mg/ 0 mg 04/20/20 14:30 04/21/20 09:37 Hydrochlorothiazide 12.5 mg PO 05/20/20 14:29 320 mg DAILY RENE Administration Famotidine 20 mg 04/20/20 22:00 04/20/20 21:50 Pepcid 20 Mg Vial IV 05/20/20 21:59 20 mg Q12HT RENE Administration Glipizide 10 mg 04/20/20 17:00 04/20/20 17:07 Glucotrol Xl 10 Mg PO 05/20/20 16:59 10 mg 1700 RENE Administration Insulin Human Lispro 0 unit 04/20/20 13:16 Humalog SQ 05/20/20 13:15 UD PRN HYPERGLYCEMIA Ketorolac Tromethamine 30 mg 04/20/20 17:44 Toradol 30 Mg Injection IM 04/25/20 17:43 Q8H PRN PRN PAIN Ketorolac Tromethamine Confirm 04/20/20 17:47 Toradol 30 Mg Injection Administered 04/20/20 17:48 Dose 30 mg .ROUTE .STK-MED ONE Morphine Sulfate 2 mg 04/20/20 13:16 Morphine Sulfate 2 Mg Inj IV 04/25/20 13:15 Q4H PRN PRN PAIN Nitroglycerin 1 gm 04/20/20 11:51 04/20/20 11:57 Nitro-Bid 2% Ud Packets TOP 04/20/20 11:52 1 gm STAT ONE Administration Nitroglycerin Confirm 04/20/20 11:56 Nitro-Bid 2% Ud Packets Administered 04/20/20 11:57 Dose 1 gm .ROUTE .STK-MED ONE Non-Formulary Medication 1 each 04/20/20 18:30 04/20/20 18:41 Non-Formulary Item PO 05/20/20 18:29 1 each DAILY PRN PRN Administration MIGRAINE Ondansetron HCl 4 mg 04/20/20 13:16 Zofran 4 Mg/2 Ml Vial IV 05/20/20 13:15 Q6H PRN PRN NAUSEA/VOMITING Excedrin Migraine 1 each 04/21/20 07:15 PO 05/21/20 06:58 DAILY PRN PRN MIGRAINE Intake & Output (Last 24 hours) 04/19/20 04/20/20 04/21/20 04/22/20 11:59 11:59 11:59 11:59 Intake Total 1250 Balance 1250 Weight 107.048 kg 108.4 kg Patient Care Notes (Last 24 hours) 04/21/20 11:01 Case Management Note by Brittany Garcia NO NEW NEEDS IDENTIFIED FOR DC AT THIS TIME Initialized on 04/21/20 11:01 - END OF NOTE - Vitals & Intake/Output Vital Signs: Vital Signs Temperature 98.1 F 04/21/20 07:09 Pulse Rate 60 04/21/20 07:09 Respiratory Rate 20 04/21/20 07:09 Blood Pressure 139/81 04/21/20 07:09 O2 Sat by Pulse Oximetry 96 04/21/20 07:09 Intake & Output: Intake & Output 04/19/20 04/20/20 04/21/20 04/22/20 11:59 11:59 11:59 11:59 Intake Total 1250 Balance 1250 Weight 107.048 kg 108.4 kg - Lab Result Diagrams: 04/21/20 04:45 04/21/20 04:45 - Radiology Exams Ordered Rad Exams-Entire Visit: Radiology Procedures Category Date Time Status CHEST 2 VIEWS (PA AND LAT) Stat Exams 04/20/20 11:11 Completed Discharge Exam General Appearance: no apparent distress, alert Neurologic Exam: alert, oriented x 3, cooperative, normal mood/affect, nml cerebellar function, sensation nml, No motor deficits Eye Exam: PERRL, EOMI, eyes nml inspection Ears, Nose, Throat Exam: normal ENT inspection, pharynx normal, moist mucous membranes Neck Exam: normal inspection, non-tender, supple, full range of motion Respiratory Exam: normal breath sounds, lungs clear, No respiratory distress Cardiovascular Exam: regular rate/rhythm, normal heart sounds Gastrointestinal/Abdomen Exam: soft, No tenderness, No mass Pelvic Exam: deferred Rectal Exam: deferred Back Exam: normal inspection, normal range of motion, No CVA tenderness, No vertebral tenderness Extremity Exam: normal inspection, normal range of motion Skin Exam: normal color, warm, dry Final Diagnosis/Problem List - Final Discharge Diagnosis/Problem (1) Chest pain, rule out acute myocardial infarction Status: Resolved Code(s): R07.9 - CHEST PAIN, UNSPECIFIED (2) Uncontrolled hypertension Status: Chronic Code(s): I10 - ESSENTIAL (PRIMARY) HYPERTENSION (3) Type 2 diabetes mellitus Status: Acute - Discharge Discharge Date: 04/21/20 Disposition: Home, Self-Care Condition: Stable Prescriptions: New Amlodipine Besylate 5 mg [Norvasc 5 mg] 5 mg PO DAILY #1 tablet Continue Valsartan/Hydrochlorothiazide [Valsartan-Hctz 320-12.5 mg Tab] 1 tab PO DAILY Glipizide [Glipizide ER] 10 mg PO 1700 Outpatient Orders: GALLBLADDER Time Frame: 04/22/20, Facility: [facility], Location: RADIOLOGY Instructions: Chest Pain That Is Not Caused by the Heart (DC), Gallbladder Diet Additional Instructions: GALLBLADDER ULTRASOUND 04/22/2020 AT 0800, NOTHING TO EAT OR DRINK AFTER MIDN IGHT, NO SMOKING, ARRIVE 10 MIN EARLY TO REGISTER. Follow up with: JON GOODMAN MD [Primary Care Provider] - 04/28/20 2:00 pm (at [facility]) Forms: Discharge Instructions, Outpatient Follow-up Labs/Proc, Work/School Release Form
== END 2020-04-21 10:02 | disposition home or self-care (01) ==
LOC: ED 10:35 → MED SURG 13:10
PROVIDERS: ADMIT General Practice; ATTEND General Practice
DX: R07.9 Chest pain, unspecified (principal); I10 Essential (primary) hypertension; E11.9 Type 2 diabetes mellitus without complications; Z79.899 Other long term (current) drug therapy
CPT/HCPCS: 36000; 36415; 71046; 80053; 82947; 83880; 84484; 85025; 85379; 93005; 93041; 93268; 94760; 99284; G0378; J1885; A9270-GY